=== PATIENT | male | born 1955 | race Caucasian/White ===

== ENCOUNTER 2017-03-05 09:54 | Observation (INO) | payer BC ==
[2017-03-05] MEDS ORDERED: ASPIRIN 81 MG PO STA (10:18)
[2017-03-05] MEDS ORDERED: SODIUM CHLORIDE 0.9% 1,000 ML IV STA (10:18)
[2017-03-05] MEDS ORDERED: MAG HYDROX/AL HYDROX/SIMETH 30 ML, HYOSCYAMINE ELIXIR 10 ML, CIMETIDINE HCL 300 MG, LID... PO STA ×4 (10:19)
--- NOTE | 2017-03-05 10:25 | ED ---
General Adult HPI - General Chief complaint: Chest Pain Stated complaint: Chest Pain Source: patient, family, RN notes reviewed Mode of arrival: ambulatory Limitations: no limitations - History of Present Illness Initial comments: Patient is a pleasant 61-year-old male presenting to the emergency Department with complaints of chest discomfort. Symptoms have been present for 2-3 weeks. Patient has discomfort underneath his left breast. Patient also has occasional indigestion in the epigastric region. Patient is unclear if these are related or not. Patient states at times it seems like greasy foods to make symptoms worse. No dyspnea, nausea, or diaphoresis. No history of similar symptoms previously. - Related Data Home Medications Medication Instructions Recorded Confirmed Calcium/Magnesium/Zinc 1 tab PO DAILY 03/05/17 03/05/17 [Poqqkjw-Nyuwsijwh-Jllj Tablet] Cinnamon Bark [Cinnamon] 500 mg PO DAILY 03/05/17 03/05/17 Cyanocobalamin [Vitamin B-12] 500 mcg PO DAILY 03/05/17 03/05/17 Allergies Allergy/AdvReac Type Severity Reaction Status Date / Time iodine Allergy Rash/Hives Verified 03/05/17 10:14 Review of Systems ROS Statement: Those systems with pertinent positive or pertinent negative responses have been documented in the HPI. ROS Other: All systems not noted in ROS Statement are negative. Constitutional: Denies: fever Eyes: Denies: eye pain ENT: Denies: ear pain Respiratory: Denies: cough, dyspnea Cardiovascular: Reports: chest pain Endocrine: Denies: fatigue Gastrointestinal: Denies: nausea, vomiting Genitourinary: Denies: dysuria Musculoskeletal: Denies: back pain Skin: Denies: rash Neurological: Denies: weakness Past Medical History Past Medical History: No Reported History History of Any Multi-Drug Resistant Organisms: None Reported Past Surgical History: Hernia Repair Past Psychological History: No Psychological Hx Reported Smoking Status: Never smoker Past Alcohol Use History: None Reported Past Drug Use History: None Reported General Exam Limitations: no limitations General appearance: alert, in no apparent distress Head exam: Present: atraumatic Eye exam: Present: normal appearance, PERRL ENT exam: Present: normal oropharynx Neck exam: Present: normal inspection Respiratory exam: Present: normal lung sounds bilaterally Cardiovascular Exam: Present: regular rate, normal rhythm Expanded Peripheral pulses: 2+: Radial (L), Femoral (R), Posterior Tibialis (R), Posterior Tibialis (L) GI/Abdominal exam: Present: soft, normal bowel sounds. Absent: distended, tenderness, guarding, rebound, rigid, pulsatile mass Extremities exam: Present: normal inspection. Absent: pedal edema, calf tenderness Neurological exam: Present: alert Psychiatric exam: Present: normal affect, normal mood Skin exam: Present: normal color Course Vital Signs 03/05/17 03/05/17 03/05/17 10:06 10:31 12:08 Temperature 98.2 F Pulse Rate 77 76 79 Respiratory 16 18 16 Rate Blood Pressure 180/88 154/84 141/74 O2 Sat by Pulse 98 98 Oximetry EKG Findings - EKG Comments: EKG Findings:: Normal sinus rhythm 74. AZ 166. QRS 156. QT 414. QTC 459. Left axis. Right bundle branch block. Left anterior fascicular block. No acute ST change. Medical Decision Making - Medical Decision Making Patient reevaluated and resting comfortably in bed. Patient states there may be slight improvement following nitroglycerin however still has some discomfort. Patient and family updated on results and plan. Case discussed in detail with Dr. menendez, who will admit for . - Lab Data Result diagrams: 03/05/17 10:10 03/05/17 10:10 Lab Results 03/05/17 03/05/17 03/05/17 Range/Units 10:10 10:10 10:10 WBC 6.4 (3.8-10.6) k/uL RBC 5.10 (4.30-5.90) m/uL Hgb 15.0 (13.0-17.5) gm/dL Hct 45.8 (39.0-53.0) % MCV 89.7 (80.0-100.0) fL MCH 29.4 (25.0-35.0) pg MCHC 32.8 (31.0-37.0) g/dL RDW 13.8 (11.5-15.5) % Plt Count 283 (150-450) k/uL Neutrophils % 71 % Lymphocytes % 20 % Monocytes % 6 % Eosinophils % 2 % Basophils % 1 % Neutrophils # 4.6 (1.3-7.7) k/uL Lymphocytes # 1.3 (1.0-4.8) k/uL Monocytes # 0.4 (0-1.0) k/uL Eosinophils # 0.1 (0-0.7) k/uL Basophils # 0.0 (0-0.2) k/uL PT (9.0-12.0) sec INR (<1.2) APTT (22.0-30.0) sec Sodium 142 (137-145) mmol/L Potassium 4.4 (3.5-5.1) mmol/L Chloride 108 H (98-107) mmol/L Carbon Dioxide 23 (22-30) mmol/L Anion Gap 11 mmol/L BUN 13 (9-20) mg/dL Creatinine 1.07 (0.66-1.25) mg/dL Est GFR (MDRD) Af Amer >60 (>60 ml/min/1.73 sqM) Est GFR (MDRD) Non-Af >60 (>60 ml/min/1.73 sqM) Glucose 98 (74-99) mg/dL Calcium 9.3 (8.4-10.2) mg/dL Magnesium 1.9 (1.6-2.3) mg/dL Total Bilirubin 0.7 (0.2-1.3) mg/dL AST 19 (17-59) U/L ALT 21 (21-72) U/L Alkaline Phosphatase 92 (38-126) U/L Total Creatine Kinase 64 (55-170) U/L CK-MB (CK-2) 0.6 (0.0-2.4) ng/mL CK-MB (CK-2) Rel Index 0.9 Troponin I <0.012 (0.000-0.034) ng/mL Total Protein 7.6 (6.3-8.2) g/dL Albumin 4.5 (3.5-5.0) g/dL Amylase 72 (30-110) U/L Lipase 127 (23-300) U/L 03/05/17 Range/Units 10:10 WBC (3.8-10.6) k/uL RBC (4.30-5.90) m/uL Hgb (13.0-17.5) gm/dL Hct (39.0-53.0) % MCV (80.0-100.0) fL MCH (25.0-35.0) pg MCHC (31.0-37.0) g/dL RDW (11.5-15.5) % Plt Count (150-450) k/uL Neutrophils % % Lymphocytes % % Monocytes % % Eosinophils % % Basophils % % Neutrophils # (1.3-7.7) k/uL Lymphocytes # (1.0-4.8) k/uL Monocytes # (0-1.0) k/uL Eosinophils # (0-0.7) k/uL Basophils # (0-0.2) k/uL PT 10.5 (9.0-12.0) sec INR 1.0 (<1.2) APTT 23.3 (22.0-30.0) sec Sodium (137-145) mmol/L Potassium (3.5-5.1) mmol/L Chloride (98-107) mmol/L Carbon Dioxide (22-30) mmol/L Anion Gap mmol/L BUN (9-20) mg/dL Creatinine (0.66-1.25) mg/dL Est GFR (MDRD) Af Amer (>60 ml/min/1.73 sqM) Est GFR (MDRD) Non-Af (>60 ml/min/1.73 sqM) Glucose (74-99) mg/dL Calcium (8.4-10.2) mg/dL Magnesium (1.6-2.3) mg/dL Total Bilirubin (0.2-1.3) mg/dL AST (17-59) U/L ALT (21-72) U/L Alkaline Phosphatase (38-126) U/L Total Creatine Kinase (55-170) U/L CK-MB (CK-2) (0.0-2.4) ng/mL CK-MB (CK-2) Rel Index Troponin I (0.000-0.034) ng/mL Total Protein (6.3-8.2) g/dL Albumin (3.5-5.0) g/dL Amylase (30-110) U/L Lipase (23-300) U/L - Radiology Data Radiology results: image reviewed (Chest x-ray shows no acute process.) Critical Care Time Critical Care Time: Yes Total Critical Care Time: 31 Disposition Clinical Impression: Unstable angina pectoris Disposition: ADMITTED IP TO THIS HOSP Referrals: Pravin Watson MD [Primary Care Provider] - 1-2 days Decision Time: 12:21
[2017-03-05] MEDS: NITROGLYCERIN SL TABS 0.4 MG TAB SUBLINGUAL PRN ×2 (10:28→10:32)
[2017-03-05] MEDS ORDERED: NITROGLYCERIN OINT 1 INCH/GM PACKET TOPICAL STA (10:34)
[2017-03-05 10:43] LABS: Basophils % (A) 1 %; CH 29.4; CHCM 32.9; Eosinophils # (A) 0.1 k/uL (0-0.7); Eosinophils % (A) 2 %; HCT 45.8 % (39.0-53.0); HDW 2.19; Luc # (Auto) 0.09; Luc % (Auto) 2; Lymphocytes # (A) 1.3 k/uL (1.0-4.8); Lymphocytes % (A) 20 %; MCH 29.4 pg (25.0-35.0); MCHC 32.8 g/dL (31.0-37.0); MCV 89.7 fL (80.0-100.0); Mean Platelet Volume 8.4; Monocytes # (A) 0.4 k/uL (0-1.0); Monocytes % (A) 6 %; Neutrophils # (A) 4.6 k/uL (1.3-7.7); Neutrophils % (A) 71 %; RDW 13.8 % (11.5-15.5); WBC 6.4 k/uL (3.8-10.6); WBC (Perox) 6.46
[2017-03-05 10:50] LABS: Partial Thromboplastin Time 23.3 sec (22.0-30.0); Prothrombin Time 10.5 sec (9.0-12.0)
[2017-03-05 10:53] LABS: ALT 21 U/L (21-72); AST 19 U/L (17-59); Alkaline Phosphatase 92 U/L (38-126); Amylase 72 U/L (30-110); Anion Gap 11 mmol/L; Blood Urea Nitrogen 13 mg/dL (9-20); Calcium 9.3 mg/dL (8.4-10.2); Carbon Dioxide 23 mmol/L (22-30); Chloride 108 mmol/L (98-107); Glucose 98 mg/dL (74-99); Magnesium 1.9 mg/dL (1.6-2.3); Non-African American GFR(MDRD) >60 (>60 ml/min/1.73 sqM); Potassium 4.4 mmol/L (3.5-5.1); Sodium 142 mmol/L (137-145); Total Bilirubin 0.7 mg/dL (0.2-1.3); Total Protein 7.6 g/dL (6.3-8.2)
[2017-03-05 11:05] LABS: Creatine Kinase 64 U/L (55-170)
--- NOTE | 2017-03-05 11:05 | XR ---
EXAMINATION TYPE: XR chest 2V DATE OF EXAM: 03/05/2017 COMPARISON: NONE INDICATION: Chest pain TECHNIQUE: Frontal and lateral views of the chest are obtained. FINDINGS: The heart size is normal. No enlargement is appreciated. The pulmonary vasculature is normal. The lungs are clear. EKG leads overlie the chest. IMPRESSION: 1. No acute pulmonary process.
[2017-03-05 11:18] LABS: Creatine Kinase MB 0.6 ng/mL (0.0-2.4); Troponin I <0.012 ng/mL (0.000-0.034)
[2017-03-05] MEDS ORDERED: HEPARIN SODIUM,PORCINE 5,000 UNIT/ML 1 ML VIAL IV ONE (12:21)
[2017-03-05] MEDS ORDERED: NITROGLYCERIN SL TABS 0.4 MG TAB SUBLINGUAL PRN (12:21)
[2017-03-05] MEDS ORDERED: HEPARIN SODIUM,PORCINE 5,000 UNIT/ML 1 ML VIAL IV PRN (12:21)
[2017-03-05] MEDS ORDERED: HEPARIN SODIUM,PORCINE/D5W PMX 25,000 UNIT in DEXTROSE/WATER 1 500ML.BAG IV SCH (12:30)
[2017-03-05] MEDS ORDERED: MAG HYDROX/AL HYDROX/SIMETH 30 ML, HYOSCYAMINE ELIXIR 10 ML, CIMETIDINE HCL 300 MG, LID... PO ONE ×4 (14:05)
[2017-03-05 16:03] VITALS: RESP 18
[2017-03-05 17:02] LABS: Creatine Kinase 52 U/L (55-170)
[2017-03-05 17:16] LABS: Creatine Kinase MB 0.4 ng/mL (0.0-2.4); Troponin I <0.012 ng/mL (0.000-0.034)
--- NOTE | 2017-03-05 17:34 | HP ---
HISTORY AND PHYSICAL DATE OF ADMISSION: 03/05/17 PRESENTING COMPLAINT: Chest pain. HISTORY OF PRESENTING COMPLAINT: This is a pleasant 61-year-old patient of Dr. Watson whose chronic stable medical conditions include GERD, he was told he has hypertension in the past but never took any medication. He thinks he has enlarged heart from , diverticulosis, insomnia. The patient for about 3 weeks has been having pain below the left breast area, feels like something is there, does not radiate. No exacerbating or relieving factors. Pretty much constant. No dizziness. No lightheadedness. The patient is rather active, doing grass and gardening and is in good shape otherwise. Had a stress test over 10 years ago. REVIEW OF SYSTEMS: CONSTITUTIONAL: None. HEENT none. Respiratory none. Cardiovascular as above. GASTROINTESTINAL: Heartburn. GENITOURINARY: None. MUSCULOSKELETAL: None. HEMATOLOGIC: None. Psychiatric: None. Neurological: Difficulty sleeping. PAST MEDICAL HISTORY: GERD, hypertension, enlarged heart, cause unknown, diverticulosis, tinnitus on the left, now corrected, insomnia. PAST SURGICAL HISTORY: Hernia repair, inguinal hernia repair, benign polypectomy. SOCIAL HISTORY: . Does not smoke. Alcohol occasionally. 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 FAMILY HISTORY: Mother had heart valve disease and cancer. HOME MEDICATIONS: Vitamin B12 500 mcg a day, cinnamon 500 mg p.o. daily, calcium, magnesium zinc 1 tab p.o. daily. ALLERGIES: IODINE. PHYSICAL EXAMINATION: Temperature 97.9, pulse 56, respiration 18, blood pressure 155/75, pulse ox 96% on room air. General appearance: Average built, lying in bed comfortable. Eyes pupils equal. Conjunctivae normal. HEENT: Oral cavity normal. Neck JVD not raised. Mass not palpable. Respiratory effort normal. Lungs are clear. Cardiovascular first and second sounds. No edema. ABDOMEN: Soft, nontender. Liver and spleen not palpable. Lymphatics: No lymph nodes palpable in neck or axillae. Psychiatry alert and oriented times three. Mood and affect normal. Neurological: Pupils equal. Cranial nerves grossly intact. Power and sensation grossly intact. INVESTIGATIONS: White count 6.4, hemoglobin 15, potassium 4.4. First troponin negative. EKG right bundle branch block. Chest x-ray unremarkable. ASSESSMENT: 1. This is a patient has got anterior left wall pain present, constant for 3 weeks. No exacerbating or relieving factors. This well may be could be musculoskeletal. The patient's troponin is negative and the patient is rather active. This could be an atypical cardiac pain. The patient pretest probability for stress test is rather low. 2. Gastroesophageal reflux disease. 3. Essential hypertension. 4. Colonic diverticulosis. 5. Chronic insomnia idiopathic. PLAN: Patient is put on aspirin and IV heparin. Serial cardiac enzymes were ordered. We will also order a 2D echocardiogram. Care was discussed with the patient. Copy to Dr. Watson. MMODL / IJN: [id number] /
[2017-03-05] MEDS: NITROGLYCERIN OINT 1 INCH/GM PACKET TOPICAL SCH (19:50)
[2017-03-05] MEDS ORDERED: LISINOPRIL-HCTZ 10-12.5 MG 1 EACH TAB PO SCH (21:00)
[2017-03-05] MEDS ORDERED: MELATONIN 3 MG TABLET PO SCH (21:00)
[2017-03-05] MEDS ORDERED: MAG HYDROX/AL HYDROX/SIMETH 30 ML CUP PO PRN (21:08)
[2017-03-05 22:38] LABS: Creatine Kinase 50 U/L (55-170)
[2017-03-05 22:50] LABS: Creatine Kinase MB 0.4 ng/mL (0.0-2.4); Troponin I <0.012 ng/mL (0.000-0.034)
[2017-03-06 03:40] LABS: Mean Platelet Volume 7.4
[2017-03-06 03:54] LABS: Cholesterol 161 mg/dL (<200); HDL Cholesterol 49 mg/dL (40-60)
[2017-03-06] MEDS: NITROGLYCERIN OINT 1 INCH/GM PACKET TOPICAL SCH ×2 (05:46→06:23)
[2017-03-06] MEDS ORDERED: ASPIRIN 325 MG TAB PO SCH (09:00)
[2017-03-06] MEDS ORDERED: CYANOCOBALAMIN 500 MCG TAB PO SCH (09:00)
[2017-03-06] MEDS ORDERED: PANTOPRAZOLE 40 MG TABLET PO SCH (11:45)
--- NOTE | 2017-03-06 11:49 | ECHOF ---
Referral Reason:cp MEASUREMENTS -------- HEIGHT: 182.9 cm WEIGHT: 97.5 kg BP: 137/69 RVIDd: 2.7 cm (< 3.3) IVSd: 1.2 cm (0.6 - 1.1) LVIDd: 3.9 cm (3.9 - 5.3) LVPWd: 1.0 cm (0.6 - 1.1) IVSs: 1.5 cm LVIDs: 2.4 cm LVPWs: 1.4 cm LA Diam: 3.5 cm (2.7 - 3.8) LAESV Index (A-L): 22.04 ml/m Ao Diam: 3.6 cm (2.0 - 3.7) AV Cusp: 2.6 cm (1.5 - 2.6) MV EXCURSION: 15.965 mm (> 18.000) MV EF SLOPE: 74 mm/s (70 - 150) EPSS: 1.2 cm MV E Ambrose: 0.95 m/s MV DecT: 201 ms MV A Ambrose: 0.69 m/s MV E/A Ratio: 1.37 RAP: 5.00 mmHg RVSP: 36.16 mmHg FINDINGS -------- Sinus rhythm. This was a technically adequate study. The left ventricular size is normal. There is borderline concentric left ventricular hypertrophy. Overall left ventricular systolic function is normal with, an EF between 55 - 60 %. The right ventricle is normal in size and function. Normal LA size by volume 22+/-6 ml/m2. The right atrium is normal in size. There is mild aortic valve sclerosis. Mild mitral annular calcification present. Mild mitral regurgitation is present. Mild tricuspid regurgitation present. There is mild pulmonary hypertension. The right ventricular systolic pressure, as measured by Doppler, is 36.16mmHg. There is no pulmonic regurgitation present. The aortic root size is normal. IVC Not well visulized. There is no pericardial effusion. CONCLUSIONS -------- 1. Sinus rhythm. 2. This was a technically adequate study. 3. There is borderline concentric left ventricular hypertrophy. 4. Overall left ventricular systolic function is normal with, an EF between 55 - 60 %. 5. Normal LA size by volume 22+/-6 ml/m2. 6. There is mild aortic valve sclerosis. 7. Mild mitral annular calcification present. 8. Mild mitral regurgitation is present. 9. Mild tricuspid regurgitation present. 10. There is mild pulmonary hypertension. 11. There is no pulmonic regurgitation present. 12. The aortic root size is normal. 13. IVC Not well visulized. 14. There is no pericardial effusion. LEASE ATTENDANT: Rubi Rangel RDCS
[2017-03-06 12:12] VITALS: BP 173/78; PULSE 90; TEMP 98.2
--- NOTE | 2017-03-06 13:19 | ECHOS ---
Referral Reason:chest pain MEASUREMENTS -------- HEIGHT: 182.9 cm WEIGHT: 98.4 kg BP: 122/71 FINDINGS -------- Utilizing the standard Paul protocol the patient was exercised for 9 minutes, seconds, achieving a maximum heart rate of , which is 91 % of predicted maximal heart rate. There was physiologic heart rate and blood pressure response to exercise. Max Heart Rate: 144 % of Max Predicted Heart Rate: 91 Rest Heart Rate: 89 Rest BP: 122/71 Max BP: 217/59 Mets Achieved: 10.3 The test was stopped because of fatigue. This level of exercise represents a good exercise tolerance for age. Sinus rhythm. The exercise ECG was uninterpretable due to resting ST-T wave changes . In response to stress, the ECG showed no ST-T wave changes . There were normal blood pressure and heart rate responses to stress. LV size, wall thickness and systolic function are normal, with an EF of 60%. Echo images were acquired at peak stress which demonstrated appropriate augmentation of all left ventricular segments with slight decrease in cavity size. CONCLUSIONS -------- 1. Utilizing the standard Paul protocol the patient was exercised for 9 minutes, seconds, achieving a maximum heart rate of , which is 91 % of predicted maximal heart rate. There was physiologic heart rate and blood pressure response to exercise. 2. This level of exercise represents a good exercise tolerance for age. 3. The exercise ECG was uninterpretable due to resting ST-T wave changes . 4. No 2D echocardiographic evidence of inducible ischemia to achieved workload. HEAD FIELD HOCKEY COACH: Babita Galvin RDCS MTDSanthosh
--- NOTE | 2017-03-06 13:28 | P.CRDCN ---
History of Present Illness Consult date: 03/06/17 History of present illness: This is a 61-year-old male past medical history significant for gastroesophageal reflux disease and new onset hypertension. Patient presents to the hospital with complaints of epigastric burning with radiation to the left chest wall. He states he suffers from chronic reflux usually can use home remedies to relieve the pain. Over the past 3 weeks the pain has been steady and began to radiate to the left chest yesterday which prompted him to come to the hospital. He states the pain is constant in the chest but very mild and does not radiate down his arm or to his back. He does complain of intermittent discomforts to the right neck and is unsure if this is related. He denies associated shortness of breath, dizziness, palpitations, nausea, diaphoresis or vomiting. He denies history of coronary artery disease and has never seen a cannoneer for any reason. He states he does not follow regularly with any family physician. He was started on lisinopril 10 mg with hydrochlorothiazide 12.5 mg twice a day yesterday per Dr. Madrid. Prior to that he took nothing for blood pressure. EKG reveals sinus mechanism with right bundle branch block. There is no old for comparison. Blood pressure on admission 180/88, this morning 137/69 with heart rate 70. Hemoglobin 15.0, platelets 247, potassium 4.4, magnesium 1.9, BUN and 13, creatinine 1.07, cardiac enzymes negative 3, LDL 96, HDL 49, triglycerides 78, total cholesterol 161. He takes no prescription medications at home. Review of Systems CONSTITUTIONAL: Denies fever. Denies chills. EYES: Denies blurred vision. Denies vision changes. Denies eye pain. EARS, NOSE, MOUTH & THROAT: Denies headache. Denies sore throat. Denies ear pain. CARDIOVASCULAR: Complains of left sided chest pain described as burning, ongoing. Denies shortness of breath. Denies orthopnea. Denies PND. Denies palpitations. RESPIRATORY: Denies cough. GASTROINTESTINAL: Complains of epigastric burning. Denies diarrhea. Denies constipation. Denies nausea. Denies vomitng. MUSCULOSKELETAL: Denies myalgias. INTEGUMENTARY: Denies pruitis. Denies rash. NEUROLOGIC: Denies numbness. Denies tingling. Denies weakness. PSYCHIATRIC: Denies anxiety. Denies depression. ENDOCRINE: Denies fatigue. Denies weight change. Denies polydipsia. Denies polyurina. GENITOURINARY: Denies burning, hematuria or urgency with micturation. HEMATOLOGIC: Denies history of anemia. Denies bleeding. 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 History of Any Multi-Drug Resistant Organisms: None Reported Past Surgical History: Hernia Repair Additional Past Surgical History / Comment(s): Umbilical and inguinal hernia repair (pt does not recall laterality), EGD/colonoscopy with benign polypectomy. Smoking Status: Never smoker - Past Family History Mother Additional Family Medical History / Comment(s): Mother had heart valve disease and had replacement. Father Family Medical History: Cancer Additional Family Medical History / Comment(s): Father of brain cancer at the age of 53 yrs. Medications and Allergies Home Medications Medication Instructions Recorded Confirmed Type Calcium/Magnesium/Zinc 1 tab PO DAILY 03/05/17 03/05/17 History [Zgcbjtx-Kiwkyovtu-Qkxt Tablet] Cinnamon Bark [Cinnamon] 500 mg PO DAILY 03/05/17 03/05/17 History Cyanocobalamin [Vitamin B-12] 500 mcg PO DAILY 03/05/17 03/05/17 History Aspirin 81 mg PO DAILY chew 03/06/17 Rx Lisinopril-Hctz 10-12.5 mg 1 each PO DAILY #30 tab 03/06/17 Rx [Zestoretic 10-12.5] Allergies Allergy/AdvReac Type Severity Reaction Status Date / Time iodine Allergy Rash/Hives Verified 03/05/17 10:14 Physical Exam Vitals: Vital Signs Temp Pulse Pulse Resp BP BP Pulse Ox 03/06/17 08:00 70 18 03/06/17 07:58 98.4 F 70 18 137/69 98 03/06/17 07:38 96 03/06/17 04:00 98.1 F 62 18 118/74 99 03/06/17 00:00 18 03/05/17 23:45 98 F 62 18 128/70 97 03/05/17 20:00 98.6 F 66 18 127/70 97 03/05/17 16:00 97.9 F 66 18 155/75 96 03/05/17 15:32 97.9 F 69 16 142/83 98 03/05/17 13:41 98.7 F 75 18 143/79 98 03/05/17 12:08 79 16 141/74 98 03/05/17 10:31 76 18 154/84 03/05/17 10:06 98.2 F 77 16 180/88 98 Intake and Output 03/05/17 03/06/17 03/06/17 22:59 06:59 14:59 Intake Total 141.929 Balance 141.929 Intake: Intake, IV Titration 141.929 Amount Heparin Sodium,Porcine/ 141.929 D5w Pmx 25,000 unit In Dextrose/Water 1 500ml. bag @ 10.25 UNITS/KG/HR 19.99 mls/hr IV .Q24H [facility] Rx#:[id number] Other: Voiding Method Toilet Toilet Toilet # Voids 1 1 Weight 98.5 kg GENERAL: This is a 61-year-old male in no apparent distress at the time of my examination. HEENT: Head is atraumatic, normocephalic. Pupils are equal, round. Sclerae anicteric. Conjunctivae are clear. Mucous membranes of the mouth are moist. Neck is supple. There is no jugular venous distention. No carotid bruit is heard. LUNGS: Clear to auscultation no wheezes, rales or rhonchi. No chest wall tenderness is noted on palpation or with deep breathing. HEART: Regular rate and rhythm without murmurs, rubs or gallops. S1 and S2 heard. ABDOMEN: Soft, nontender. Bowel sounds are heard. No organomegaly noted. EXTREMITIES: 2+ peripheral pulses with no evidence of peripheral edema and no calf tenderness noted. NEUROLOGIC: Patient is awake, alert and oriented x3. Results 03/06/17 02:52 03/05/17 10:10 Cardiac Enzymes 03/05/17 03/05/17 03/05/17 Range/Units 10:10 10:10 16:17 AST 19 (17-59) U/L CK-MB (CK-2) 0.6 0.4 (0.0-2.4) ng/mL Troponin I <0.012 <0.012 (0.000-0.034) ng/mL 03/05/17 Range/Units 21:57 AST (17-59) U/L CK-MB (CK-2) 0.4 (0.0-2.4) ng/mL Troponin I <0.012 (0.000-0.034) ng/mL Coagulation 03/05/17 03/05/17 03/06/17 Range/Units 10:10 19:37 02:52 PT 10.5 (9.0-12.0) sec APTT 23.3 30.8 H 57.7 H (22.0-30.0) sec Lipids 03/06/17 Range/Units 02:52 Triglycerides 78 (<150) mg/dL Cholesterol 161 (<200) mg/dL HDL Cholesterol 49 (40-60) mg/dL CBC 03/05/17 03/06/17 Range/Units 10:10 02:52 WBC 6.4 (3.8-10.6) k/uL RBC 5.10 (4.30-5.90) m/uL Hgb 15.0 (13.0-17.5) gm/dL Hct 45.8 (39.0-53.0) % Plt Count 283 247 (150-450) k/uL Comprehensive Metabolic Panel 03/05/17 Range/Units 10:10 Sodium 142 (137-145) mmol/L Potassium 4.4 (3.5-5.1) mmol/L Chloride 108 H (98-107) mmol/L Carbon Dioxide 23 (22-30) mmol/L BUN 13 (9-20) mg/dL Creatinine 1.07 (0.66-1.25) mg/dL Glucose 98 (74-99) mg/dL Calcium 9.3 (8.4-10.2) mg/dL AST 19 (17-59) U/L ALT 21 (21-72) U/L Alkaline Phosphatase 92 (38-126) U/L Total Protein 7.6 (6.3-8.2) g/dL Albumin 4.5 (3.5-5.0) g/dL Current Medications Generic Name Dose Route Start Last Admin Trade Name Freq PRN Reason Stop Dose Admin Al Hydroxide/Mg Hydroxide 30 ml 03/05/17 21:08 03/05/17 21:37 Maalox PO 30 ml Q4HR PRN Administration GI Upset Aspirin 325 mg 03/06/17 09:00 Aspirin PO DAILY [facility] Cyanocobalamin 500 mcg 03/06/17 09:00 Vitamin B-12 PO DAILY [facility] Lisinopril/HCTZ 1 each 03/05/17 21:00 03/05/17 21:35 Zestoretic 10-12.5 PO Not Given BID [facility] Heparin Sodium (Porcine) 0 unit 03/05/17 12:21 03/05/17 20:53 Heparin IV 4,000 unit Q6HR PRN Administration Low PTT Protocol Heparin Sodium/Dextrose 25,000 500 mls @ 19.99 mls/hr 03/05/17 12:30 20:53 unit/ IV Solution IV 13.33 units/kg/hr .Q24H [facility] 26 mls/hr Protocol Titration 10.25 UNITS/KG/HR Melatonin 3 mg 03/05/17 21:00 03/05/17 20:53 Melatonin PO 3 mg HS [facility] Administration Nitroglycerin 1 inch 03/05/17 18:00 03/06/17 06:23 Nitro-Bid Oint TOPICAL Not Given Q6HR [facility] Nitroglycerin 0.4 mg 03/05/17 12:21 Nitrostat SUBLINGUAL Q5M PRN Chest Pain Intake and Output 03/05/17 03/06/17 03/06/17 22:59 06:59 14:59 Intake Total 141.929 Balance 141.929 Intake: Intake, IV Titration 141.929 Amount Heparin Sodium,Porcine/ 141.929 D5w Pmx 25,000 unit In Dextrose/Water 1 500ml. bag @ 10.25 UNITS/KG/HR 19.99 mls/hr IV .Q24H [facility] Rx#:[id number] Other: Voiding Method Toilet Toilet Toilet # Voids 1 1 Weight 98.5 kg 03/06/17 02:52 03/05/17 10:10 Assessment and Plan Assessment: ASSESSMENT 1. Chest pain, atypical with risk factors of hypertension 2. New onset hypertension PLAN Obtain 2-D echocardiogram and Doppler study to assess cardiac structure and function and assess for hypertensive heart disease. Perform stress echocardiogram to evaluate for any reversible ischemia. Decrease lisinopril/hctz from twice a day to once daily dosing. Further recommendations will be based upon diagnostic testing. Thank you kindly for this consultation. Nurse Practitioner note has been reviewed, I agree with a documented findings and plan of care. Patient was seen and examined.
--- NOTE | 2017-03-06 22:22 | DS ---
DISCHARGE SUMMARY DATE OF ADMISSION: 03/05/2017. DATE OF DISCHARGE: 03/06/17. FINAL DIAGNOSES: 1. Left anterior chest wall pain could be musculoskeletal or exacerbation of gastroesophageal reflux disease. 2. Essential hypertension. 3. Colonic diverticulosis. 4. Chronic insomnia, idiopathic. HOSPITAL COURSE: This patient presented with left lower chest wall pain, constant nature, not related to any exertion. Troponin's were negative. Did undergo stress echocardiogram that was negative. The patient is having reflux symptoms. Blood pressure medications were added. DISCHARGE MEDICATIONS: 1. Aspirin 81 mg a day. 2. Pepcid 20 mg p.o. b.i.d. 3. Zestoretic 02/07.5 one tab p.o. daily. 4. Melatonin 3 mg p.o. q.h.s. CONSULTATIONS: Dr. Edwards from Cardiology. Initially patient's 2D echocardiogram was unremarkable. Care was discussed with the patient. PHYSICAL EXAMINATION: On exam lungs are clear. Cardiovascular first and second sounds normal. Follow up with Dr. Edwards in 1 week, follow up with Dr. Watson in [address] Watson. MMODL / IJN: [id number] /
[2017-03-07] MEDS ORDERED: ASPIRIN 81 MG PO SCH (09:00)
[2017-03-07] MEDS ORDERED: LISINOPRIL-HCTZ 10-12.5 MG 1 EACH TAB PO SCH (09:00)
== END 2017-03-06 14:25 | disposition home or self-care (01) ==
LOC: EC 09:54 → 3OBS 12:21
PROVIDERS: ADMIT Hospitalist; ATTEND Hospitalist
DX: R07.89 Other chest pain (principal); I10 Essential (primary) hypertension; K21.9 Gastro-esophageal reflux disease without esophagitis; K57.30 Diverticulosis of large intestine without perforation or abscess without bleeding; F51.01 Primary insomnia; Z91.048 Other nonmedicinal substance allergy status; Z82.49 Family history of ischemic heart disease and other diseases of the circulatory system
CPT/HCPCS: 99291 ×2; 96365 ×2; 96376 ×3; 96361 ×4; 96366 ×2; 36415; 94760; 93005; 93017; 93306; 93350; 80061; 80053; 82150; 82550; 82553; 83690; 83735; 84484; 85025; 85049; 85610; 85730 ×2; 71020; G0378 ×2; J1644 ×2